=== PATIENT | female | born 2000 | race Caucasian/White ===

== ENCOUNTER 2019-05-02 11:30 | Outpatient (CLI) | payer OTHER ==
--- NOTE | 2019-05-02 12:08 | RAD ---
3 views of the cervical spine: 05/02/2019 COMPARISON: None HISTORY: Neck pain, evaluate spine following surgery FINDINGS: Anterior discectomy and fusion hardware present at C3-4/C4-5. Fibular graft is suspected in this region. Posterior fusion hardware is noted at C3, C4, and C5, incompletely assessed without frontal imaging. Bilateral laminectomy changes noted at C3, C4, and C5. The flexion, neutral, and ext ension lateral views demonstrate no significant anterolisthesis or retrolisthesis. There is mild superior endplate irregularity involving the C7 vertebral body as well as the anterior aspect of C7 s uggesting fracture in this region. Postoperative soft tissue swelling in the prevertebral space noted. IMPRESSION: Anterior and posterior fusion hardware of the cervical spine. Findings suggesting mild paz perior/anterior C7 vertebral body fracture. CT would be beneficial.
== END 2019-05-02 11:31 | disposition home or self-care (01) ==
LOC: TBSIIMAG 11:30
PROVIDERS: ATTEND Neurological Surgery
DX: M54.2 Cervicalgia (principal); Z98.1 Arthrodesis status
CPT/HCPCS: 72040

== ENCOUNTER 2021-05-16 15:34 | Outpatient (CLI) | payer OTHER | END 2021-05-16 15:35 | disposition home or self-care (01) | LOC: BICRAD 15:34 | PROVIDERS: ATTEND Nurse Practitioner Family | DX: S22.039A Unspecified fracture of third thoracic vertebra, initial encounter for closed fracture (principal); M47.812 Spondylosis without myelopathy or radiculopathy, cervical region; Z98.1 Arthrodesis status | CPT/HCPCS: 72050; 72072 ==